=== PATIENT | male | born 1960 | race African-American/Black ===

== ENCOUNTER 2019-05-06 15:46 | Inpatient (IN) | payer BC ==
[~2019-05-06] VITALS: Ht 180.3 cm; Wt 115.7 kg
[2019-05-06 15:50] VITALS: BP_SYST 203
--- NOTE | 2019-05-06 15:50 | NUR ---
Patient triaged and placed in waiting room. VSS and patient appears in no acute distress at this time. Accompanied by FRIEND, awaiting available bed, and MD notified of need for MSE.
--- NOTE | 2019-05-06 16:07 | NUR ---
PT TOLD RADIOTELEGRAPHIST THAT HE IS NOW HAVING CHEST PAINS
--- NOTE | 2019-05-06 16:09 | NUR ---
EKG DONE AND GIVEN TO DR PUGH
--- NOTE | 2019-05-06 16:28 | NUR ---
BROUGHT BACK TO BED #1 AND PLACED ON CARDIAC MONITORING.
--- NOTE | 2019-05-06 16:30 | NUR ---
Patient arrived in the ED c/o left-sided abdominal pain with nausea that started 10hrs ago. Bowel sounds present in all 4 quadrants, LBM 05/05/19. Denied any fevers or chills. Denied any vomiting or diarrhea. Patient is alert and oriented x4, respirations even and unlabored, speaking in full sentences, and ambulating with a steady gait. VSS, pain severity 10/10 - Taking Advil at home. Denied any respiratory distress at this time. Informed of the wait time. Instructed to notify ED staff for any changes in condition or worsening of symptoms. Patient verbalized understanding.
[2019-05-06] MEDS ORDERED: NACL 0.9% 1,000 ML IV ONE ×2 (16:48→16:57)
--- NOTE | 2019-05-06 16:56 | NUR ---
ER Dr. Frank at bedside examining patient.
[2019-05-06] MEDS ORDERED: MORPHINE 4 MG/ML INJ. SYRINGE IVP ONE ×2 (17:00→21:45)
[2019-05-06] MEDS ORDERED: ONDANSETRON HCL 4 MG/2 ML VIAL IVP ONE (17:00)
--- NOTE | 2019-05-06 17:01 | NUR ---
Administered Morphine Sulfate and Zofran IVP as ordered by Dr. Frank. Patient tolerated the medications well. Please see eMAR for details.
--- NOTE | 2019-05-06 17:20 | NUR ---
# 22 gauge angiocath placed to left hand. Use of asceptic technique. Opsite placed over site. Blood return noted. Blood for lab drawn from site. Flushed with 10 cc of normal saline. No evidence of infiltration noted. Patient tolerated well.
[2019-05-06] MEDS ORDERED: cloNIDine HCL 0.1 MG TABLET PO ONE (17:30)
--- NOTE | 2019-05-06 17:35 | NUR ---
ophthalmology technician at bedside collecting blood specimen. Patient tolerated the procedure well.
--- NOTE | 2019-05-06 17:35 | NUR ---
Administered Clonidine as ordered by Dr. Frank. Patient tolerated the medications well. Please see eMAR for details.
--- NOTE | 2019-05-06 17:42 | NUR ---
Xray done at bedside as ordered by Dr. Frank. Patient tolerated the procedure well.
[2019-05-06 17:53] LABS: EOSINOPHILS % (AUTO) 0.1 % (0.0-4.0); LYMPHOCYTES # (AUTO) 1.2 K/uL (1.0-5.5)
--- NOTE | 2019-05-06 18:12 | NUR ---
Urine specimen collected. Dropped off at the lab.
[2019-05-06 18:13] LABS: PROTHROMBIN TIME 10.5 SECS (9.5-12.5)
[2019-05-06 18:18] LABS: CALCIUM 9.1 mg/dL (8.4-11.0); CREATININE 1.08 mg/dL (0.55-1.30)
[2019-05-06 18:22] LABS: BASOPHILS % (AUTO) 0.4 % (0.0-2.0); HEMATOCRIT 49.4 % (36-54); HEMOGLOBIN 17.8 g/dL (14.0-18.0); LYMPHOCYTES % (AUTO) 9.8 % (20.5-51.5); MEAN CORPUSCULAR HEMOGLOBIN 34 pg (27-31); MEAN CORPUSCULAR HGB CONC 36 % (32-36); MEAN CORPUSCULAR VOLUME 94 fL (79.0-98.0); MONOCYTES # (AUTO) 0.6 K/uL (0.0-1.0); MONOCYTES % (AUTO) 4.8 % (1.7-9.3); NEUTROPHILS % (AUTO) 84.9 % (40.0-70.0); PLATELET COUNT (AUTO) 237 K/uL (130-430); RED BLOOD CELL COUNT(AUTO) 5.24 MIL/uL (4.2-6.2); WHITE BLOOD COUNT (AUTO) 11.7 K/uL (4.8-10.8)
[2019-05-06 18:25] LABS: ALBUMIN 4.3 g/dL (3.4-4.8); TOTAL BILIRUBIN 0.6 mg/dL (0.0-1.0)
--- NOTE | 2019-05-06 18:53 | NUR ---
Patient to ER bed 02 to gown for evaluation. Side rails up.
--- NOTE | 2019-05-06 18:55 | NUR ---
food service technician at bedside.
[2019-05-06 19:01] LABS: BILIRUBIN,URINE NEGATIVE (NEGATIVE); CLARITY/URINE CLEAR (CLEAR); COLOR,URINE YELLOW (YELLOW); GLUCOSE,URINE NEGATIVE (NEGATIVE); KETONES,URINE TRACE (NEGATIVE); LEUKOCYTE ESTERASE ,URINE NEGATIVE (NEGATIVE); NITRITE, URINE NEGATIVE (NEGATIVE); PROTEIN URINE 2+ (NEGATIVE); UROBILINOGEN,URINE 0.2 (0.2-1.0)
[2019-05-06 19:08] LABS: BLOOD, URINE TRACE (NEGATIVE)
[2019-05-06 19:24] LABS: BACTERIA,URINE RARE /HPF (None Seen); MUCUS,URINE None Seen /LPF (None Seen); RBC,URINE 0-3 /HPF (0-3); WBC,URINE 0-3 /HPF (0-3)
--- NOTE | 2019-05-06 19:30 | NUR ---
Report given and care transferred to REYNALDO Ga.
[2019-05-06 20:37] LABS: CKMB RELATIVE INDEX 0.3 (0.0-2.9); CREATINE KINASE MB 2.1 ng/mL (0-3.6)
--- NOTE | 2019-05-06 21:30 | NUR ---
Pt resting in ED bed. No acute signs of distress at this time.
[2019-05-06 23:19] LABS: CKMB RELATIVE INDEX 0.3 (0.0-2.9); CREATINE KINASE MB 1.8 ng/mL (0-3.6)
--- NOTE | 2019-05-06 23:30 | NUR ---
Pt resting in ED bed. Pt sleeping but easily aroused.
--- NOTE | 2019-05-07 00:30 | NUR ---
Patient will be admitted to care of . Admitted to Med/Surg unit. Will go to room 129B. Belongings list completed. Complete and up to date summary report printed. SBAR report to be given at bedside with opportunity for questions.
[2019-05-07] MEDS ORDERED: cloNIDine HCL 0.1 MG TABLET PO PRN (01:00)
--- NOTE | 2019-05-07 01:40 | NUR ---
Transfer to [facility]. IV present no sign or symptom of infiltration.
--- NOTE | 2019-05-07 02:06 | NUR ---
ADMISSION: The patient, ESCOBAR MICHAELS, 58 y/o, M admitted by ANNA KOVACS MD, was given written information regarding hospital policies, unit procedures and contact persons. Valuables were checked and .
[2019-05-07] MEDS: HYDROmorphone 1 MG INJ. 1 MG/ML AMPUL IVP PRN ×3 (02:23→21:03)
--- NOTE | 2019-05-07 02:23 | NUR ---
PAIN/DILAUDID PT REPORTING SEVERE ABDOMINAL PAIN. DILAUDID 1 MG IVP ADMINISTERED ORDERED PRN. MEDICATION ACTION AND POTENTIAL SIDE EFFECTS DISCUSSED WITH PT, PT VERBALIZED UNDERSTANDING. SAFETY PRECAUTIONS ARE IN PLACE. CALL LIGHT IS WITH PT. WILL MONITOR.
[2019-05-07] MEDS ORDERED: KCL 20 mEq in D5/0.45NS 1000mL 1,000 ML IV ONE (03:19)
[2019-05-07] MEDS: KCL 20 mEq in D5/0.45NS 1000mL 1,000 ML IV SCH ×2 (03:25→13:41)
--- NOTE | 2019-05-07 03:25 | NUR ---
IVF STARTED IVF STARTED AND REGULATED TO ORDERED RATE BY REYNALDO ARMSTRONG.
--- NOTE | 2019-05-07 05:01 | NUR ---
RESTING PT RESTING IN BED, NO S/S OF ACUTE DISTRESS, BREATHING IS UNLABORED TO ROOM AIR, SAFETY AND FALL PRECAUTIONS ARE IN PLACE. WILL CONTINUE TO MONITOR.
--- NOTE | 2019-05-07 06:04 | NUR ---
CONSENT FOR JOA SIGNED
[2019-05-07 06:27] LABS: BASOPHILS % (AUTO) 0.2 % (0.0-2.0); EOSINOPHILS # (AUTO) 0.1 K/uL (0.0-0.4); EOSINOPHILS % (AUTO) 0.8 % (0.0-4.0); MEAN CORPUSCULAR HEMOGLOBIN 34 pg (27-31); MONOCYTES # (AUTO) 1.3 K/uL (0.0-1.0); NEUTROPHILS % (AUTO) 68.6 % (40.0-70.0)
--- NOTE | 2019-05-07 06:36 | NUR ---
CLOSING NOTE PT RESTING IN BED, DENIES PAIN AT THIS TIME, BREATHING IS EVEN AND UNLABORED TO ROOM AIR, NO S/S OF ACUTE DISTRESS. PT IS NPO FOR HIDA SCAN TODAY. IVF INFUSING AT ORDERED RATE. SAFETY PRECAUTIONS ARE IN PLACE. CALL LIGHT IS WITH PT. WILL ENDORSE CARE TO DAY SHIFT RN.
[2019-05-07 06:42] LABS: CALCIUM 7.8 mg/dL (8.4-11.0); CREATININE 1.12 mg/dL (0.55-1.30)
[2019-05-07 06:54] LABS: ALBUMIN 3.4 g/dL (3.4-4.8); TOTAL BILIRUBIN 0.7 mg/dL (0.0-1.0)
[2019-05-07 07:02] LABS: POTASSIUM 2.9 mmol/L (3.5-5.1)
[2019-05-07 07:23] LABS: HEMATOCRIT 45.1 % (36-54); HEMOGLOBIN 15.8 g/dL (14.0-18.0); MEAN CORPUSCULAR VOLUME 96 fL (79.0-98.0); RED BLOOD CELL COUNT(AUTO) 4.69 MIL/uL (4.2-6.2); WHITE BLOOD COUNT (AUTO) 11.3 K/uL (4.8-10.8)
[2019-05-07 07:24] LABS: MEAN CORPUSCULAR HGB CONC 35 % (32-36); PLATELET COUNT (AUTO) 233 K/uL (130-430)
[2019-05-07 07:26] LABS: LYMPHOCYTES # (AUTO) 2.1 K/uL (1.0-5.5); LYMPHOCYTES % (AUTO) 18.7 % (20.5-51.5); MONOCYTES % (AUTO) 11.7 % (1.7-9.3); NEUTROPHILS # (AUTO) 7.8 K/uL (1.8-7.7)
[2019-05-07 07:34] LABS: CKMB RELATIVE INDEX 0.3 (0.0-2.9); CREATINE KINASE MB 1.6 ng/mL (0-3.6)
--- NOTE | 2019-05-07 07:40 | NUR ---
CRITICAL POTASSIUM OF 2.9. DR. FINA BELTRAN. ENDORSED TO REYNALDO GALEANO. Addendum: 05/07/19 at 0948 by Mildred Franco RN [id number]: Dr. Fina beltran regarding abnormal labs: K+ 2.9
[2019-05-07 08:35] VITALS: BP_SYST 156
--- NOTE | 2019-05-07 09:10 | NUR ---
ATTENDING MD DR Dallas REYES WAS CALLED DIRECTLY RE: ABNORMAL LABS.
--- NOTE | 2019-05-07 09:13 | NUR ---
ERROR WRONG PT.
--- NOTE | 2019-05-07 09:13 | NUR ---
ATTENDING MD DR KOVACS WAS PAGED DIRECTLY FOR: K LEVEL OF 2.9.
[2019-05-07] MEDS ORDERED: POTASSIUM CHLORIDE 40 MEQ in NS 250 ML IV ONE (09:45)
[2019-05-07] MEDS ORDERED: POTASSIUM CHLORIDE 20 MEQ TAB.PRT.SR PO ONE (09:45)
--- NOTE | 2019-05-07 09:45 | NUR ---
Routine Patient asleep with no distress noted.
[2019-05-07 12:20] VITALS: BP_SYST 156
--- NOTE | 2019-05-07 13:45 | NUR ---
Routine Patient sitting on side of bed with Dr. Arroyo at bedside. Started new IVF bag. Patient stable at this time.
[2019-05-07] MEDS ORDERED: PROPOFOL 200MG/ 20ML VIAL (DIPRIVAN) IV ONE (13:50)
[2019-05-07] MEDS ORDERED: LR 1,000 ML IV.SOLN IV ONE (13:50)
[2019-05-07] MEDS ORDERED: SEVOFLURANE 15 MIN GAS INH ONE (13:50)
[2019-05-07] MEDS ORDERED: BUPIVACAINE /PF 0.25% 30 ML VIAL INJ ONE (13:50)
[2019-05-07] MEDS ORDERED: NS IRRIG SOLN 1000 ML IR ONE (13:50)
[2019-05-07] MEDS ORDERED: fentaNYL CITRATE 250 MCG/5 ML AMP IV ONE (13:50)
[2019-05-07] MEDS ORDERED: CEFAZOLIN 2 GM IVPB PREMIX 50 ML IV ONE (13:50)
[2019-05-07] MEDS ORDERED: LABETALOL 100 MG/ 20ML VIAL IVP ONE (13:50)
[2019-05-07] MEDS ORDERED: MIDAZOLAM HCL 5 MG/5 ML VIAL IVP ONE (13:50)
[2019-05-07] MEDS ORDERED: ROCURONIUM BROMIDE 10 MG/ML (ZEMURON) IV ONE (13:50)
[2019-05-07] MEDS ORDERED: amLODIPine BESYLATE 10 MG TABLET PO ONE (15:00)
[2019-05-07 16:40] VITALS: BP_SYST 185
[2019-05-07 20:00] VITALS: BP_SYST 173
--- NOTE | 2019-05-07 20:56 | NUR ---
PATIENT IS REQUESTING FOR SLEEPING MEDICATION AND DR KOVACS PAGED FOR ORDERS,.
[2019-05-07] MEDS: metroNIDAZOLE 500 mg/NS 100 ML IV SCH (21:08)
--- NOTE | 2019-05-07 21:21 | NUR ---
DR KOVACS WITH ORDERS AND CARRIED OUT
[2019-05-07] MEDS: TEMAZEPAM 15 MG CAPSULE PO PRN (22:25)
--- NOTE | 2019-05-07 22:53 | NUR ---
PATIENT INSTRUCTED TO BE NPO P MIDNIGHT FOR THE PROCEDURE IN AM
[2019-05-07 22:59] VITALS: BP_SYST 159
--- NOTE | 2019-05-08 00:57 | NUR ---
ROUNDING PATIENT IS SLEEPING IN BED AND STABLE. NO S/S OF RESPIRATORY DISTRESS NOTED. CALL LIGHT IN REACH. BED IS LOCKED, ALARMED, AND AT THE LOWEST POSITION. WILL CONTINUE TO MONITOR. Addendum: 05/09/19 at 0321 by Dario Joseph RN WRONG DATE
--- NOTE | 2019-05-08 01:38 | NUR ---
NPO AND MAINTAINED
[2019-05-08] MEDS: KCL 20 mEq in D5/0.45NS 1000mL 1,000 ML IV SCH ×3 (01:45→13:07)
[2019-05-08 04:00] VITALS: BP_SYST 148
--- NOTE | 2019-05-08 05:47 | NUR ---
NPO AND MAINTAINED FOR THE SCHEDULED SURGERY TODAY.WITH THE SAME IVF ON
[2019-05-08] MEDS: metroNIDAZOLE 500 mg/NS 100 ML IV SCH ×3 (06:02→21:40)
--- NOTE | 2019-05-08 06:25 | NUR ---
PAGED PAGED HEATHER CHAVEZ AT [phone] SPOKE WITH HAYLIE.
--- NOTE | 2019-05-08 06:26 | NUR ---
DR Dario BHAKTA THE SURGEON PAGED TO VERIFY AND CLARIFY THE TIME HE WOULD LIKE TO DO THE SURGERY THE OPERATING ROOM IS NOT [place] OF THE SCHEDULE. MESSAGE LEFT WITH THE EXCHANGE, AWAITING RESPONSE. PATIENT ISKPET NPO FOR THE PROCEDURE PER DR KOVACS
--- NOTE | 2019-05-08 06:33 | NUR ---
DR BHAKTA CALLED BACK AND INFORMED THAT THERE WAS A CONSENT SIGNED BUT NO ORDERS MADE. WILL NEED TO TALK TO THE NURSING MANAGER FEDERAL ABOUT THE SCHEDULE THE CREW NEEDS TO BE CALLED PREPARATOR FOR THE PROCEDURE.
--- NOTE | 2019-05-08 07:18 | NUR ---
DR BHAKTA TALKED TO THE NURSING INTERIOR DESIGN PROGRAM CHAIR FOR THE SCHEDULE OF THE SURGERY. MRSA SPECIMEN COLLECTED AND SENT TO LAB. NPO AND MAINTAINED
--- NOTE | 2019-05-08 07:30 | NUR ---
opening note patient resting in bed at this time, A/ox4, no complaints of pain. No SOB. IV patent, intact, and infusing as ordered. No adverse side effects noted. No infiltration noted. Patient is NPO at this time, awaiting surgery. On safety and aspiration precautions, HOB kept elevated, bed alarm on, 3 side rails up, call light within reach. patient in stable condition. Will continue to monitor.
[2019-05-08 08:00] VITALS: BP_SYST 160
[2019-05-08 08:14] LABS: CALCIUM 7.9 mg/dL (8.4-11.0); CREATININE 1.18 mg/dL (0.55-1.30); POTASSIUM 3.8 mmol/L (3.5-5.1)
[2019-05-08] MEDS: amLODIPine BESYLATE 10 MG TABLET PO SCH (08:36)
[2019-05-08] MEDS: HYDROmorphone 1 MG INJ. 1 MG/ML AMPUL IVP PRN ×4 (08:42→23:21)
--- NOTE | 2019-05-08 09:00 | NUR ---
medications All morning medications given as ordered. No nausea, no vomiting noted.
[2019-05-08 09:25] LABS: BASOPHILS % (AUTO) 0.4 % (0.0-2.0); EOSINOPHILS # (AUTO) 0.3 K/uL (0.0-0.4); EOSINOPHILS % (AUTO) 2.6 % (0.0-4.0); HEMATOCRIT 44.7 % (36-54); HEMOGLOBIN 15.8 g/dL (14.0-18.0); LYMPHOCYTES # (AUTO) 1.5 K/uL (1.0-5.5); LYMPHOCYTES % (AUTO) 14.3 % (20.5-51.5); MEAN CORPUSCULAR HEMOGLOBIN 34 pg (27-31); MEAN CORPUSCULAR HGB CONC 35 % (32-36); MEAN CORPUSCULAR VOLUME 97 fL (79.0-98.0); MONOCYTES # (AUTO) 0.9 K/uL (0.0-1.0); MONOCYTES % (AUTO) 8.9 % (1.7-9.3); NEUTROPHILS # (AUTO) 7.5 K/uL (1.8-7.7); NEUTROPHILS % (AUTO) 73.8 % (40.0-70.0); PLATELET COUNT (AUTO) 233 K/uL (130-430); RED BLOOD CELL COUNT(AUTO) 4.62 MIL/uL (4.2-6.2); RED CELL DISTRIBUTION WIDTH 13.3 % (9.0-15.0); WHITE BLOOD COUNT (AUTO) 10.2 K/uL (4.8-10.8)
[2019-05-08 09:28] LABS: INR 1.1 (0.80-1.20)
--- NOTE | 2019-05-08 11:30 | NUR ---
rounds patient resting in bed at this time, offered to assist patient to the restroom, patient denied need. Patient is NPO at this time, no other needs at this time.
[2019-05-08 12:10] VITALS: BP_SYST 158
--- NOTE | 2019-05-08 13:30 | NUR ---
CHG bath CHG bath given, linens changed, patient ready for surgery. No other needs at this time.
--- NOTE | 2019-05-08 14:00 | NUR ---
Patient left for surgery patient left for surgery via bed in stable condition. No other needs at this time.
[2019-05-08] MEDS ORDERED: IOHEXOL 50 ML IV ONE (14:05)
[2019-05-08] MEDS ORDERED: ONDANSETRON HCL 4 MG/2 ML VIAL IVP PRN ×2 (14:15→14:30)
[2019-05-08] MEDS ORDERED: MORPHINE 4 MG/ML INJ. SYRINGE IVP PRN (14:15)
[2019-05-08 14:25] VITALS: BP_SYST 158
[2019-05-08] MEDS ORDERED: fentaNYL CITRATE/PF 100 MCG/2 ML AMP IVP PRN ×2 (14:30)
[2019-05-08] MEDS ORDERED: KETOROLAC TROMETHAMINE 30 MG VIAL IVP PRN (14:30)
[2019-05-08] MEDS ORDERED: hydrALAZINE HCL 20 MG/ML VIAL ONE (16:44)
[2019-05-08] MEDS ORDERED: hydrALAZINE HCL 20 MG/ML VIAL IVP ONE (16:45)
--- NOTE | 2019-05-08 17:30 | NUR ---
S/P lap abhijit patient returned from OR, S/P lap abhijit. DANIEL drain in place, draining red drainage, 10cc at this time. [address] No other needs at this time.
--- NOTE | 2019-05-08 18:14 | NUR ---
Closing note patient resting in bed at this time, no complaints of pain. No SOB. IV patent, intact, and infusing as ordered. No adverse side effects noted. No infiltration noted. On safety and aspiration precautions, HOB kept elevated, bed alarm on, 3 side rails up, call light within reach. patient in stable condition. All needs met.
[2019-05-08 19:50] VITALS: BP_SYST 123
--- NOTE | 2019-05-08 19:50 | NUR ---
INITIAL NOTES PATIENT IS LAYING IN BED AND STABLE. NO S/S OF RESPIRATORY DISTRESS NOTED. PATIENT SUCCESSFULLY DEMONSTRATES USAGE OF CALL LIGHT AT THIS TIME. BED IS LOCKED, ALARMED, AND AT THE LOWEST POSITION. FALL, SAFETY, ASPIRATION, AND RESPIRATORY PRECAUTIONS WILL BE IN PLACE THROUGHOUT THE SHIFT. Addendum: 05/08/19 at 2111 by Dario Joseph RN PLAN OF CARE WAS DISCUSSED AT THIS TIME/
--- NOTE | 2019-05-08 20:57 | NUR ---
INCENTIVE SPIROMETER TEACHING PATIENT IS EDUCATED ON INCENTIVE SPIROMETER AT THIS TIME. PATIENT REFUSES TO DEMONSTRATE AT THIS TIME. WILL CONTINUE TO EDUCATE AND MONITOR THROUGHOUT THE SHIFT. Addendum: 05/08/19 at 2111 by Dario Joseph RN FAMILY MEMBER IS BY BESIDE AT THIS TIME. PATIENT IS BY BEDSIDE AT THIS TIME. FAMILY MEMBER WAS APART OF EDUCATION.
--- NOTE | 2019-05-08 22:57 | NUR ---
ROUNDING PATIENT IS LAYING IN BED AND STABLE. NO S/S OF RESPIRATORY DISTRESS NOTED. CALL LIGHT IN REACH. BED IS LOCKED, ALARMED, AND AT THE LOWEST POSITION. WILL CONTINUE TO MONITOR.
[2019-05-09 00:10] VITALS: BP_SYST 153
--- NOTE | 2019-05-09 00:57 | NUR ---
ROUNDING PATIENT IS SLEEPING IN BED AND STABLE. NO S/S OF RESPIRATORY DISTRESS NOTED. CALL LIGHT IN REACH. BED IS LOCKED, ALARMED, AND AT THE LOWEST POSITION. WILL CONTINUE TO MONITOR. Addendum: 05/09/19 at 0328 by Dario Joseph RN FAMILY MEMBER IS NO LONGER BY BEDSIDE AT THIS TIME
--- NOTE | 2019-05-09 02:57 | NUR ---
ROUNDING PATIENT IS SLEEPING IN BED AND STABLE. NO S/S OF RESPIRATORY DISTRESS NOTED. CALL LIGHT IN REACH. BED IS LOCKED, ALARMED, AND AT THE LOWEST POSITION. WILL CONTINUE TO MONITOR.
[2019-05-09] MEDS: KCL 20 mEq in D5/0.45NS 1000mL 1,000 ML IV SCH ×3 (03:49→16:06)
[2019-05-09] MEDS: HYDROmorphone 1 MG INJ. 1 MG/ML AMPUL IVP PRN ×5 (03:51→21:35)
--- NOTE | 2019-05-09 04:34 | NUR ---
DRESSING CHANGE DRESSING CHANGE FOR SURGICAL SITE COMPLETED AT THIS TIME PER MD ORDER, PATIENT TOLERATED WELL. DRESSING IS CLEAN, DRY, INTACT, AND SECURED.
[2019-05-09] MEDS: metroNIDAZOLE 500 mg/NS 100 ML IV SCH ×3 (05:38→22:21)
--- NOTE | 2019-05-09 06:13 | NUR ---
CLOSING NOTES PATIENT IS LAYING IN BED AND STABLE. NO S/S OF RESPIRATORY DISTRESS NOTED. CALL LIGHT IN REACH. BED IS LOCKED, ALARMED, AND AT THE LOWEST POSITION. FALL, SAFETY, ASPIRATION, AND RESPIRATORY PRECAUTIONS HAS BEEN PLACED THROUGHOUT THE SHIFT. WILL CONTINUE TO MONITOR UNTIL REPORT IS GIVEN TO AM NURSE BY BEDSIDE.
--- NOTE | 2019-05-09 07:30 | NUR ---
opening note patient resting in bed at this time, A/ox4, no complaints of pain. No SOB. IV patent, intact, and infusing as ordered. No adverse side effects noted. No infiltration noted. Oleg drain in place, draining red output. On safety and aspiration precautions, HOB kept elevated, bed alarm on, 3 side rails up, call light within reach. patient in stable condition. Will continue to monitor.
[2019-05-09 07:44] LABS: BASOPHILS % (AUTO) 0.2 % (0.0-2.0); HEMATOCRIT 43.2 % (36-54); HEMOGLOBIN 15.3 g/dL (14.0-18.0); LYMPHOCYTES # (AUTO) 1.2 K/uL (1.0-5.5); LYMPHOCYTES % (AUTO) 8.7 % (20.5-51.5); MEAN CORPUSCULAR HEMOGLOBIN 34 pg (27-31); MEAN CORPUSCULAR HGB CONC 36 % (32-36); MEAN CORPUSCULAR VOLUME 96 fL (79.0-98.0); MONOCYTES # (AUTO) 1.3 K/uL (0.0-1.0); MONOCYTES % (AUTO) 9.9 % (1.7-9.3); NEUTROPHILS # (AUTO) 10.8 K/uL (1.8-7.7); NEUTROPHILS % (AUTO) 81.2 % (40.0-70.0); PLATELET COUNT (AUTO) 252 K/uL (130-430); RED CELL DISTRIBUTION WIDTH 13.1 % (9.0-15.0); WHITE BLOOD COUNT (AUTO) 13.4 K/uL (4.8-10.8)
[2019-05-09 07:52] LABS: CALCIUM 7.9 mg/dL (8.4-11.0); CREATININE 1.18 mg/dL (0.55-1.30); POTASSIUM 3.4 mmol/L (3.5-5.1)
[2019-05-09 08:05] VITALS: BP_SYST 155
[2019-05-09] MEDS: amLODIPine BESYLATE 10 MG TABLET PO SCH (08:14)
--- NOTE | 2019-05-09 09:36 | NUR ---
dressing change surgical incision site noted to be bleeding, dressing changed. MD aware.
--- NOTE | 2019-05-09 11:27 | NUR ---
ambulating patient ambulated in the hallway using a front wheeled walked. patient noted with steady gait.
[2019-05-09 12:00] VITALS: BP_SYST 133
--- NOTE | 2019-05-09 13:43 | NUR ---
rounds patient complained of pain, medication given as ordered, effective.
[2019-05-09] MEDS: ACETAMINOPHEN/CODEINE 300 MG-30 MG TABLET PO PRN (16:03)
--- NOTE | 2019-05-09 16:13 | NUR ---
rounds patient complained of abdominal pain. medications given as ordered. no other needs at this time.
[2019-05-09 16:24] VITALS: BP_SYST 151
[2019-05-09] MEDS ORDERED: POTASSIUM CHLORIDE 20 MEQ TAB.PRT.SR PO ONE (16:45)
--- NOTE | 2019-05-09 18:06 | NUR ---
Closing note patient resting in bed at this time, A/ox4, no complaints of pain. No SOB. IV patent, intact, and infusing as ordered. No adverse side effects noted. No infiltration noted. Oleg drain in place, draining red output. On safety and aspiration precautions, HOB kept elevated, bed alarm on, 3 side rails up, call light within reach. patient in stable condition. All needs met.
[2019-05-09 20:00] VITALS: BP_SYST 151
--- NOTE | 2019-05-09 20:00 | NUR ---
receive pt in bed v/s and assessment done same stable rt aniyah in place ,lt hand with iv fluids infusing well ,aniyah drain in place. medicated for pain
[2019-05-09] MEDS: TEMAZEPAM 15 MG CAPSULE PO PRN (22:18)
[2019-05-10] VITALS: BP_SYST 145
--- NOTE | 2019-05-10 | NUR ---
pt repositioned medicated for pain,iv fluids infusing well
[2019-05-10] MEDS: HYDROmorphone 1 MG INJ. 1 MG/ML AMPUL IVP PRN ×4 (01:45→18:46)
--- NOTE | 2019-05-10 04:00 | NUR ---
pt resting in bed in no distress at this time
[2019-05-10 04:01] VITALS: BP_SYST 148
[2019-05-10] MEDS: metroNIDAZOLE 500 mg/NS 100 ML IV SCH ×3 (05:15→21:52)
--- NOTE | 2019-05-10 08:00 | NUR ---
RN INITIAL NOTES RECEIVED PATIENT IN BED NOT IN ANY DISTRESS WITH TRACT TO O2 MASK WITH 5L/MIN , PATIENT IS VERBAL AND ABLE TO VERBALIZED NEEDS, PATIENT WITH PICC LINE TO RT UPPER ARM X 2 LUMEN , RESP EVEN AND UNLABORED , PATIENT SATING 96%
--- NOTE | 2019-05-10 08:00 | NUR ---
RN INITIAL NOTES PATIENT IN BED NOT IN ANY DISTRESS SLEEPY JUST HAD HIS DILAUDID SHOT, FOR POST OP PAIN , RESP EVEN AND UNLABORED , DANIEL DRAINED 50 CC FROM NIGTH SHIFT ,
[2019-05-10] MEDS: amLODIPine BESYLATE 10 MG TABLET PO SCH (09:34)
--- NOTE | 2019-05-10 10:00 | NUR ---
DR BHAKTA SURGEON CAME AND DISCUSSED PATIENT CONDITION , PER DR BHAKTA ITS OK TO KEEP DANIEL DRAIN WHEN DISCHARGE, WILL NEED TO FOLLOW UP WITH SURGEON FOLLOW UP, TRAINED PATIENT HOW TO EMPTY DANIEL DRAIN AND KEEP ON NEGATIVE PRESSURE
--- NOTE | 2019-05-10 10:00 | NUR ---
ROUNDS PATIENT NOT ON ANY DISTRESS, PATIENT SAID RAOULMAGDALENE TOUCH ME FOR NOW I WANT TO SLEEP , STOMA TO LEFT ABDOMEN NO BLEEDING Addendum: 05/10/19 at 1944 by Carol Dwyer RN ERROR WRONG PATIENT
[2019-05-10 11:08] VITALS: BP_SYST 162
--- NOTE | 2019-05-10 12:00 | NUR ---
ROUNDS PATIENT SLEEPING A THIS TIME NO DISTRESS
[2019-05-10 15:05] VITALS: BP_SYST 154
[2019-05-10] MEDS: KCL 20 mEq in D5/0.45NS 1000mL 1,000 ML IV SCH ×2 (15:34→20:00)
--- NOTE | 2019-05-10 16:00 | NUR ---
DR KOVACS PATIENT SEEN BY MD ORDERS NOTED CONT IVF AND MEDS ,
--- NOTE | 2019-05-10 18:42 | NUR ---
P.T. NOTES P.T. JOHANNA COMPLETED; PATIENT MAY AMBULATE INSIDE ROOM AD SILVIA. Addendum: 05/10/19 at 1843 by Mandy Fabian PT Amended: Links added.
--- NOTE | 2019-05-10 19:37 | NUR ---
ENDORSEMENT WILL ENDORSE TO NEXT SHIFT CONT CARE , PATIENT AMBULATES AND CONT ON PAIN MEDS , SEEN BY DR KOVACS AND DISCUSSED PATIENT CONDITION , DRESSING ENDORSED TO NEXT SHIFT TO CHANGE
[2019-05-10 20:00] VITALS: BP_SYST 161
--- NOTE | 2019-05-10 20:00 | NUR ---
ASSUMED CARE. RECEIVED ALERT,ORIENTED. AFEBRILE, NOT IN ACUTE DISTRESS. DENIES ANY PAIN OR DISCOMFORT AT THIS TIME. WITH IV FLUID D5 1/2 NS + KCL 20 MEQ INFUSING AT 100 ML/HR VIA RIGHT AC #22 IV LINE. ABDOMINAL INCISIONS WITH NO SIGNS OB LEEDING OR INFECTION. DANIEL DRAINING SEROSANGUINOUS FLUID. PT. NOTED TO BE PASSING GAS. LE=971/88. OTHERWISE ASYMPTOMATIC AND STABLE. GIRLFRIEND AT BEDSIDE. WILL CONTINUE TO MONITOR. NEEDS ATTENDED.
--- NOTE | 2019-05-10 21:52 | NUR ---
COMPLAINED OF PAIN (8/). MORPHINE 4 MG IVP AND DUE IV ANTIBIOTIC GIVEN.
--- NOTE | 2019-05-10 22:30 | NUR ---
PT.SLEEPING, NO PAIN OR DISCOMFORT NOTED AT THIS TIME.
[2019-05-11] VITALS: BP_SYST 149
[2019-05-11] MEDS: HYDROmorphone 1 MG INJ. 1 MG/ML AMPUL IVP PRN ×2 (00:15→15:38)
--- NOTE | 2019-05-11 00:15 | NUR ---
AWAKE, NOT IN ACUTE DISTRESS. BP BETTER. COMPLAINED OF SEVERE PAIN TO THE SURGICAL SITE. DILAUDID 1 MG IVP GIVEN. SIDE RAILS UP, CALL LIGHT WITHIN REACH. KEPT WARM AND COMFORTABLE. VS REMAIN STABLE.
--- NOTE | 2019-05-11 04:00 | NUR ---
AWAKE, NO PAIN OR DISCOMFORT NOTED AT THIS TIME. WILL CONTINUE TO MONITOR.
[2019-05-11] MEDS: KCL 20 mEq in D5/0.45NS 1000mL 1,000 ML IV SCH ×2 (04:59→15:42)
[2019-05-11] MEDS: metroNIDAZOLE 500 mg/NS 100 ML IV SCH ×3 (06:04→22:38)
[2019-05-11] MEDS: ACETAMINOPHEN/CODEINE 300 MG-30 MG TABLET PO PRN ×2 (06:12→11:18)
--- NOTE | 2019-05-11 06:12 | NUR ---
COMPLAINED OF WORSENING PAIN. TYLENOL WITH CODEINE 1 TABLET PO GIVEN PER PT'S REQUEST.
--- NOTE | 2019-05-11 07:13 | NUR ---
ENDORSED CARE TO GERARDO JACOBS.
--- NOTE | 2019-05-11 08:00 | NUR ---
RN INITIAL NOTES RECEIVED PATIENT IN BED NO DISTRESS , RISE AND FALL OF THE CHEST NOTED NO FACIAL GRIMACE NOTED , PATIENT HAD JUST HIS PO PAIN MEDS AND SNORING LOUD AT THIS TIME
[2019-05-11] MEDS: amLODIPine BESYLATE 10 MG TABLET PO SCH (08:53)
[2019-05-11 09:00] VITALS: BP_SYST 162
--- NOTE | 2019-05-11 10:00 | NUR ---
DR BHAKTA SURGEON CAME DISCUSSED PATIENT DANILE DRAIN AND INFORMED ABOUT 90 CC OUTPUT LAST MD TAYO SAID TO KEEP IT AND EDUCATE PATIENT HOW TO EMPTY AND TO LOG DAILY OUTPUT OF THE DANIEL DRAIN , AND WILL NEED TO SCHEDULE A FOLLOW UP WITH SURGEON NEXT WEEK , PATIENT MADE AWARE AND EDUCATION DONE ON DANIEL DRAIN CARE AND LOGGING IN AND OUT RECORDING, PATIENT VERBALIZED UNDERSTANDING.
--- NOTE | 2019-05-11 11:20 | NUR ---
ROUNDS WOUND DRESSING AND PATIENT GIVEN TYLENOL # 3
[2019-05-11 12:40] VITALS: BP_SYST 157
--- NOTE | 2019-05-11 14:00 | NUR ---
ROUNDS PATIENT SLEEPING NO DISTRESS
[2019-05-11 14:13] VITALS: BP_SYST 157
[2019-05-11 16:48] VITALS: BP_SYST 168
--- NOTE | 2019-05-11 19:09 | NUR ---
ENDORSEMENT WILL ENDORS E TO NEXT SHIFT CONT CARE . CONT ON PAIN MEDS Addendum: 05/11/19 at 1940 by Carol Dwyer RN DR BETHANIE MA HERE INFORMED PATIENT HAD EPISODES OF HI BP WHEN HE IS ON PAIN, SAID HE WILL CHECK AND ORDER BP MEDS , DISCUSSED ALSO DANIEL DRAIN OUTPUT AND CONDITION
[2019-05-11 20:00] VITALS: BP_SYST 150
--- NOTE | 2019-05-11 20:13 | NUR ---
DR KOVACS IN AND WITH ORDERS AND CARRIED OUT.
[2019-05-11] MEDS: HYDROcodone/ACETAMIN 10-325 MG TAB PO PRN (20:43)
[2019-05-11] MEDS: LOSARTAN POTASSIUM 50 MG TABLET (COZAAR) PO SCH (20:43)
[2019-05-11] MEDS: TEMAZEPAM 15 MG CAPSULE PO PRN (22:44)
[2019-05-12 00:49] VITALS: BP_SYST 162
[2019-05-12 02:02] VITALS: BP_SYST 127
[2019-05-12] MEDS: KCL 20 mEq in D5/0.45NS 1000mL 1,000 ML IV SCH ×2 (03:09→11:01)
[2019-05-12] MEDS: HYDROcodone/ACETAMIN 10-325 MG TAB PO PRN ×4 (03:11→20:18)
[2019-05-12] MEDS: metroNIDAZOLE 500 mg/NS 100 ML IV SCH ×2 (05:49→13:51)
[2019-05-12 06:36] LABS: BASOPHILS % (AUTO) 0.3 % (0.0-2.0); EOSINOPHILS # (AUTO) 0.3 K/uL (0.0-0.4); EOSINOPHILS % (AUTO) 2.3 % (0.0-4.0); HEMATOCRIT 37.5 % (36-54); HEMOGLOBIN 13.2 g/dL (14.0-18.0); LYMPHOCYTES # (AUTO) 1.3 K/uL (1.0-5.5); LYMPHOCYTES % (AUTO) 10.4 % (20.5-51.5); MEAN CORPUSCULAR HEMOGLOBIN 34 pg (27-31); MEAN CORPUSCULAR HGB CONC 35 % (32-36); MEAN CORPUSCULAR VOLUME 96 fL (79.0-98.0); MONOCYTES # (AUTO) 1.2 K/uL (0.0-1.0); MONOCYTES % (AUTO) 9.3 % (1.7-9.3); NEUTROPHILS # (AUTO) 9.7 K/uL (1.8-7.7); NEUTROPHILS % (AUTO) 77.7 % (40.0-70.0); PLATELET COUNT (AUTO) 247 K/uL (130-430); WHITE BLOOD COUNT (AUTO) 12.5 K/uL (4.8-10.8)
[2019-05-12 06:45] LABS: CALCIUM 7.5 mg/dL (8.4-11.0); CREATININE 1.04 mg/dL (0.55-1.30); POTASSIUM 3.4 mmol/L (3.5-5.1)
--- NOTE | 2019-05-12 07:30 | NUR ---
INITIAL NOTE PT AWAKE, INSIDE RESTROOM. CALL LIGHT WITHIN REACH, BED IN LOW AND LOCKED POSITION WITH BED ALARM ON.
[2019-05-12 08:00] VITALS: BP_SYST 148
[2019-05-12] MEDS: amLODIPine BESYLATE 10 MG TABLET PO SCH (08:18)
[2019-05-12] MEDS: LOSARTAN POTASSIUM 50 MG TABLET (COZAAR) PO SCH (08:20)
--- NOTE | 2019-05-12 09:34 | NUR ---
PAIN MEDICATION PT COMPLAINING OF 6/10 PAIN IN ABDOMEN. EDUCATED PT ON USES AND SIDE EFFECTS OF NORCO. PT VERBALIZED UNDERSTANDING. PRN NORCO INDICATED FOR MODERATE PAIN, NORCO ADMINISTERED. WILL CONTINUE TO MONITOR.
--- NOTE | 2019-05-12 12:12 | NUR ---
RN ROUNDS PT AMBULATING HALLWAYS. PAIN CONTROLLED AT THIS TIME. WILL CONTINUE TO MONITOR.
[2019-05-12 13:18] VITALS: BP_SYST 151
--- NOTE | 2019-05-12 14:12 | NUR ---
RN ROUNDS PT RESTING IN BED, PAIN CONTROLLED AT THIS TIME. IVF IN FUSING WELL. SCHEDULED ANTIBIOTICS ADMINISTERED.
--- NOTE | 2019-05-12 14:59 | NUR ---
Dietitian Recommendations * Recommend continuing low-fat diet * Encourage increase PO intakes for optimal nutrition * RD to provide low-fat MNT LP, RD Please refer to Nutrition Assessment for details. Addendum: 05/12/19 at [address] Amended: Links added.
--- NOTE | 2019-05-12 15:30 | NUR ---
PAIN MEDICATION PT COMPLAINING OF ABDOMINAL PAIN 10/05. EDUCATED PT ON USES AND SIDE EFFECTS OF NORCO. PT VERBALIZED UNDERSTANDING. PRN NORCO ADMINISTERED. WILL CONTINUE TO MONITOR.
[2019-05-12 16:46] VITALS: BP_SYST 162
--- NOTE | 2019-05-12 17:30 | NUR ---
RN ROUNDS PT AMBULATING PETTY. PT COMPLAINING OF IV LEAKING. DISCONNECTED PT FROM IVF FOR NOW. PT COMPLAINING OF PAIN FROM IV SITE. ELEVATED ARM, WILL REASSESS FOR PATENCY.
--- NOTE | 2019-05-12 18:45 | NUR ---
DR. BETHANIE MA AT BEDSIDE EXAMINING PT. MD TO DISCHARGE PT WITH PRESCRIPTIONS.
--- NOTE | 2019-05-12 19:30 | NUR ---
OPENING NOTES RECEIVED PATIENT IN BED SITTING AAO X4. BREATHING UNLABORED ON ROOM AIR. PATIENT FOR D/C HOME TONIGHT PER DR. KOVACS.
[2019-05-12 19:36] VITALS: BP_SYST 160
--- NOTE | 2019-05-12 19:41 | NUR ---
CLOSING NOTE PT AWAKE, AWARE OF DISCHARGE. IV SALINE LOCKED. ALL NEEDS MET THROUGHOUT SHIFT. CALL LIGHT WITHIN REACH, BED IN LOW AND LOCKED POSITION WITH BED ALARM ON. DISCHARGE ENDORSED TO LARGE ANIMAL HUSBANDRY TECHNICIANJUANA.
--- NOTE | 2019-05-12 20:18 | NUR ---
PAIN MGT PATIENT MEDICATED WITH NORCO EARLIER THAN SCHEDULED TIME PER DR BETHANIE CASTILLO TO GIVE BEFORE DISCHARGING PATIENT HOME. PATIENT REFUSED TYLENOL #3 WHEN OFFERED. VITAL SIGNS STABLE.
--- NOTE | 2019-05-12 20:24 | NUR ---
DISCHARGED PATIENT DISCHARGED HOME ORDERED. WHEELED PATIENT TO LOBBY ACCOMPANIED BY FAMILY MEMBER SIMEON WHO WILL BE DRIVING PATIENT HOME. DISCHARGED IN STABLE CONDITION. ABDOMINAL DRESSINGS DRY NO BLEEDING NOTED. PATIENT INSTRUCTED HOW TO EMPTY DANIEL DRAIN. PATIENT PROVIDED WITH DR. BHAKTA NUMBER AND OFFICE ADDRESS TO FOLLOW UP THIS Friday05/14/19.
--- NOTE | 2019-05-12 21:12 | NUR ---
D/C INSTRUCTIONS DISCHARGE INSTRUCTIONS PROVIDED TO PATIENT. NORCO PRESCRIPTION HANDED OUT TO PATIENT.
== END 2019-05-12 20:24 | disposition home or self-care (01) | DRG 419 ==
LOC: SED 15:46 → SMU 05-07 00:46
PROVIDERS: ADMIT Family Medicine; ATTEND Family Medicine
PROC: 0FT44ZZ Resection of Gallbladder, Percutaneous Endoscopic Approach (ICD-10-PCS; 2019-05-08)
PROC: BF101ZZ Fluoroscopy of Bile Ducts using Low Osmolar Contrast (ICD-10-PCS; 2019-05-08)
PROC: 0FN44ZZ Release Gallbladder, Percutaneous Endoscopic Approach (ICD-10-PCS; principal; 2019-05-08 14:00)
DX: K80.12 Calculus of gallbladder with acute and chronic cholecystitis without obstruction (principal); I10 Essential (primary) hypertension; E66.9 Obesity, unspecified; Z68.35 Body mass index [BMI] 35.0-35.9, adult; Z79.899 Other long term (current) drug therapy
CPT/HCPCS: 36415; 71045; 74300; 76700-TC; 80048; 80053; 81000-TC; 82150-TC; 82550-TC; 82553-TC; 83605; 83690-TC; 83735-TC; 83880; 84484; 85025; 85610-TC; 85730-TC; 87040-TC; 87070; 87070-TC; 87075-TC; 87081; 88304; 93005; 96361; 96374; 96375; 99285; C1727; J0360; J0690; J1170; J1956; J2250; J2270; J2405; J2704; J3010; J3480; J3490; J7030; J7050; J7120; Q9967

== ENCOUNTER 2019-05-28 10:36 | Inpatient (IN) | payer BC ==
[~2019-05-28] VITALS: Ht 180.3 cm; Wt 108.9 kg
--- NOTE | 2019-05-28 10:45 | NUR ---
Patient to ER bed 06 to gown for evaluation. Side rails up.
[2019-05-28 10:46] VITALS: BP_SYST 166
--- NOTE | 2019-05-28 11:06 | NUR ---
PATIENT PRESENTS TO THE ER WITH TWO DAY HX OF RIGHT SIDED CHEST PAIN WITH MOVEMENT; NO TRAUMA, NO OTHER REMARKABLE S/S; PATIENT PLACED IN ROOM #6 AT 1045 AND ERMD EVALUATION AT 1100; STAT EKG AND CASTING ASSOCIATE/SAO2
[2019-05-28] MEDS ORDERED: LOSA25TA18 PO (11:10)
[2019-05-28] MEDS ORDERED: AMLO5TAB92 PO (11:10)
[2019-05-28 11:18] LABS: BASOPHILS % (AUTO) 0.7 % (0.0-2.0); EOSINOPHILS # (AUTO) 0.4 K/uL (0.0-0.4); HEMATOCRIT 42.1 % (36-54); HEMOGLOBIN 14.6 g/dL (14.0-18.0); LYMPHOCYTES # (AUTO) 1.9 K/uL (1.0-5.5); LYMPHOCYTES % (AUTO) 30.4 % (20.5-51.5); MEAN CORPUSCULAR HEMOGLOBIN 33 pg (27-31); MEAN CORPUSCULAR HGB CONC 35 % (32-36); MEAN CORPUSCULAR VOLUME 96 fL (79.0-98.0); MONOCYTES # (AUTO) 0.5 K/uL (0.0-1.0); MONOCYTES % (AUTO) 8.3 % (1.7-9.3); NEUTROPHILS # (AUTO) 3.5 K/uL (1.8-7.7); NEUTROPHILS % (AUTO) 54.6 % (40.0-70.0); PLATELET COUNT (AUTO) 350 K/uL (130-430); RED CELL DISTRIBUTION WIDTH 13.4 % (9.0-15.0); WHITE BLOOD COUNT (AUTO) 6.4 K/uL (4.8-10.8)
[2019-05-28 11:30] LABS: CALCIUM 8.7 mg/dL (8.4-11.0); CREATININE 1.18 mg/dL (0.55-1.30); POTASSIUM 3.3 mmol/L (3.5-5.1)
[2019-05-28 11:31] LABS: INR 1.1 (0.80-1.20); PROTHROMBIN TIME 10.6 SECS (9.5-12.5)
[2019-05-28 11:35] LABS: ALBUMIN 3.2 g/dL (3.4-4.8); TOTAL BILIRUBIN 0.4 mg/dL (0.0-1.0)
--- NOTE | 2019-05-28 12:26 | NUR ---
PREPARATION FOR CT SCAN; CONSENT SIGNED AND IV PLACED #20 RAC WITHOUT INCIDENT
[2019-05-28] MEDS ORDERED: IOHEXOL 350 mgI/mL, 150 ML INFUS..BTL IV ONE (13:20)
--- NOTE | 2019-05-28 14:02 | NUR ---
REASSESSMENT; PATIENT STATES PAIN FREE WITHOUT MOTION; FEELS PAIN IF MOVING RIGHT UPPER EXTREMITIE/CHESTWALL; DISPOSTION PENDING
[2019-05-28] MEDS ORDERED: PIPERACILLIN/TAZO 3.375 GM in NS 50 ML IV ONE (15:00)
--- NOTE | 2019-05-28 15:17 | NUR ---
PREPARATIONS TO ADMIT TO MS; PATIENT REMAINS UNCHANGED; PATENT IV IN RAC @#20; REPORT TO NS NURSE AND PATIENT TRANSPORTED BCLS
[2019-05-28] MEDS ORDERED: PIPERACILLIN/TAZOBACTAM 3.375 GM/VIAL (ZOSYN) IV ONE (15:42)
[2019-05-28] MEDS ORDERED: D5/0.45 NS 1,000 ML IV ONE (16:00)
[2019-05-28 16:25] VITALS: BP_SYST 167
[2019-05-28] MEDS ORDERED: ACETAMINOPHEN 325 MG TABLET PO PRN (16:30)
[2019-05-28] MEDS ORDERED: HYDROcodone/ACETAMIN 5-325 MG TAB (NORCO/ VICODIN) PO PRN (16:30)
[2019-05-28] MEDS ORDERED: LORazepam 2 MG/ML VIAL IVP PRN (16:30)
[2019-05-28] MEDS ORDERED: ONDANSETRON HCL 4 MG/2 ML VIAL IVP PRN (16:30)
[2019-05-28] MEDS ORDERED: HYDROcodone/ACETAMIN 10-325 MG TAB PO PRN (16:30)
--- NOTE | 2019-05-28 16:42 | NUR ---
CONSULTATION PAGED/CALLED Reason for Consultation: [] ABDOMINAL ABSCESS Person Who was Notified: [] DESIREE Consulting Physician: [] DR HUGO Barrel Brander Specialty: [] ID Ordering Physician: [] DR Dario BOOGIE
[2019-05-28] MEDS: AMPICILLIN SODIUM/SULBACTAM NA 3 GM in NS 100 ML IV SCH ×2 (17:47→23:12)
--- NOTE | 2019-05-28 18:00 | NUR ---
Note Pt came to the floor at 1600 from ED. pt was oriented to nursing routines and procedures. Pt was given call light and educated on how to use it. Pt's questions/concerns were answered at this time. Left hand IV intact and patent infusing IVF's well. Pt kept NPO all shift. Dr Escobar came to see pt at 1700. Dr Arroyo to see pt this evening for possible surgery. Pt ambulates to restroom with steady gait. Pt's girlfriend at bedside all shift. Pt stable and was checked on all shift q1' and PRN. Call light within reach.
--- NOTE | 2019-05-28 19:15 | NUR ---
OPENING NOTES Pt and endorsement received from day shift nurse. Pt is AAOx4, lying in bed. Pt on IVF with D5,0.45NS at 100ml/hr and infusing well on left hand G22. No complains of pain at this time. No signs of acute distress or SOB noted. Encouraged to use call light when needed. Safety precautions in place with 2 side rails up, wheels locked, and bed in lowest level. Call light with pt. Will continue to monitor.
[2019-05-28 20:58] VITALS: BP_SYST 152
[2019-05-28] MEDS: NORMAL SALINE 5 ML DISP.SYRIN IVF SCH ×2 (21:00)
--- NOTE | 2019-05-28 21:07 | NUR ---
SURG CONSULT Consult for Dr. Dario Arroyo was called, RE: abdominal abscess s/w [place]
--- NOTE | 2019-05-28 21:18 | NUR ---
SPOKE TO DR. ARROYO Spoke to Dr. Arroyo regarding a surgical consult for this pt. Dr. Arroyo is not aware of the consult, he asked about the pt's status and pt's labs and answered all his questions. He ordered ultrasound of the abdomen in the morning. Told him if pt can eat now since pt is NPO since he came in the floor and pt said he is hungry, said yes and will put pt on NPO after. Read back order and will carry out.
[2019-05-29 00:30] VITALS: BP_SYST 156
--- NOTE | 2019-05-29 01:08 | NUR ---
PAIN MED Pt complained of abdominal pain with a scale of 5/10. Munday 5-325mg PO 1 tab given as ordered. No signs of acute distress or SOB noted. Will continue to monitor.
--- NOTE | 2019-05-29 03:32 | NUR ---
ROUNDS Pt is resting in bed with both eyes closed, with visible chest rise and fall with non-labored breathing noted. Pt is easily arousable. No signs of acute distress or SOB noted. No needs at this time. Safety precautions in place and call light with pt. Will continue to monitor.
[2019-05-29] MEDS: AMPICILLIN SODIUM/SULBACTAM NA 3 GM in NS 100 ML IV SCH ×3 (05:12→17:20)
[2019-05-29] MEDS: NORMAL SALINE 5 ML DISP.SYRIN IVF SCH ×6 (05:12→22:32)
--- NOTE | 2019-05-29 06:16 | NUR ---
CLOSING NOTES Pt is resting in bed with both eyes closed, with visible chest rise and fall with non-labored breathing noted. No complains of pain at this time. No signs of acute distress or SOB noted. All needs attended throughout the shift. Safety precautions maintained with 2 side rails up, wheels locked, and bed in lowest level. Call light with pt. Will endorse to day shift nurse.
[2019-05-29 07:39] LABS: BASOPHILS % (AUTO) 0.4 % (0.0-2.0); EOSINOPHILS # (AUTO) 0.5 K/uL (0.0-0.4); EOSINOPHILS % (AUTO) 7.5 % (0.0-4.0); HEMATOCRIT 41.5 % (36-54); HEMOGLOBIN 14.3 g/dL (14.0-18.0); LYMPHOCYTES # (AUTO) 2.2 K/uL (1.0-5.5); LYMPHOCYTES % (AUTO) 33.3 % (20.5-51.5); MEAN CORPUSCULAR HEMOGLOBIN 33 pg (27-31); MEAN CORPUSCULAR HGB CONC 35 % (32-36); MEAN CORPUSCULAR VOLUME 96 fL (79.0-98.0); MONOCYTES # (AUTO) 0.7 K/uL (0.0-1.0); MONOCYTES % (AUTO) 10.3 % (1.7-9.3); NEUTROPHILS # (AUTO) 3.2 K/uL (1.8-7.7); NEUTROPHILS % (AUTO) 48.5 % (40.0-70.0); PLATELET COUNT (AUTO) 327 K/uL (130-430); RED BLOOD CELL COUNT(AUTO) 4.33 MIL/uL (4.2-6.2); RED CELL DISTRIBUTION WIDTH 13.5 % (9.0-15.0); WHITE BLOOD COUNT (AUTO) 6.6 K/uL (4.8-10.8)
[2019-05-29 07:59] LABS: CALCIUM 8.3 mg/dL (8.4-11.0); CREATININE 1.13 mg/dL (0.55-1.30); POTASSIUM 3.5 mmol/L (3.5-5.1)
[2019-05-29 08:00] VITALS: BP_SYST 151
--- NOTE | 2019-05-29 08:00 | NUR ---
Note Pt resting in bed with IV in left hand intact and patent at this time. No SOB/resp distress or severe abdominal pain/discomfort noted at this time. Pt NPO for US of abdomen, to be done this am. No needs noted at this time. Call light within reach.
[2019-05-29 11:26] VITALS: BP_SYST 145
[2019-05-29] MEDS: amLODIPine BESYLATE 5 MG TABLET PO SCH (11:30)
[2019-05-29] MEDS: LOSARTAN POTASSIUM 25 MG TABLET PO SCH (11:30)
--- NOTE | 2019-05-29 12:00 | NUR ---
Note US of abdomen completed, waiting for results at this time. Waiting for Dr Arroyo to notify pt if MD will do surgery or not today. Pt states he is very hungry. Dr Escobar on the floor doing rounds. Pt denies any needs at this time. Call light within reach.
[2019-05-29] MEDS: metroNIDAZOLE 500 mg/NS 100 ML IV SCH ×2 (13:35→22:31)
[2019-05-29 15:21] VITALS: BP_SYST 151
--- NOTE | 2019-05-29 18:45 | NUR ---
Note Dr Arroyo came to see pt at 1300, ordered diet and spoke to pt on results of US of abdomen. No surgery to be done. Pt has been ambulating in room to restroom all shift with steady gait and independently. No needs noted at this time. Pt was checked on q1' and PRN all shift for needs and care. Pt stable. Denies any upper chest pain/abdominal pain all shift. Call light within reach.
[2019-05-29 20:00] VITALS: BP_SYST 152
--- NOTE | 2019-05-29 20:30 | NUR ---
Opening notes Pt AAOx4, watching TV. VSS, afebrile. No s/s distress noted. Pt denies any pain at this time. IV saline lock L hand 22G clear and patent. Call light within reach. Bed low, locked, siderails up x2. To monitor.
--- NOTE | 2019-05-29 21:00 | NUR ---
Rounds Pt had shower per pt request. L. hand IV maintained dry and intact.
[2019-05-29 23:31] VITALS: BP_SYST 146
[2019-05-30] MEDS: AMPICILLIN SODIUM/SULBACTAM NA 3 GM in NS 100 ML IV SCH ×2 (00:30→05:26)
--- NOTE | 2019-05-30 00:30 | NUR ---
Rounds Pt asleep, easily arousable. IV antibiotics administered at this time. Call light remains within reach. Safety maintained. To monitor.
--- NOTE | 2019-05-30 04:05 | NUR ---
Rounds Pt asleep, respirations even and unlabored. Call light within reach. To monitor.
[2019-05-30] MEDS: NORMAL SALINE 5 ML DISP.SYRIN IVF SCH ×2 (05:25→05:26)
--- NOTE | 2019-05-30 06:00 | NUR ---
Closing notes Pt awake, resting in bed. No s/s distress. No c/o pain. IV antibiotics infusing at ordered rate L hand 22G no s/s infiltration. Bed low, locked, siderails up x2. Call light within reach. To endorse to AM nurse.
[2019-05-30] MEDS: metroNIDAZOLE 500 mg/NS 100 ML IV SCH (06:05)
[2019-05-30 08:00] VITALS: BP_SYST 142
--- NOTE | 2019-05-30 08:00 | NUR ---
IV in left hand,#22, SL, site intact and patent at this time. No pain at this time. Instructed on POC. Call light in place, bed locked at the lowest position. Will continue to monitor.
[2019-05-30] MEDS: LOSARTAN POTASSIUM 25 MG TABLET PO SCH (08:08)
[2019-05-30] MEDS: amLODIPine BESYLATE 5 MG TABLET PO SCH (08:09)
[2019-05-30 08:13] LABS: BASOPHILS % (AUTO) 0.3 % (0.0-2.0); EOSINOPHILS # (AUTO) 0.5 K/uL (0.0-0.4); EOSINOPHILS % (AUTO) 7.4 % (0.0-4.0); HEMATOCRIT 41.8 % (36-54); HEMOGLOBIN 14.5 g/dL (14.0-18.0); LYMPHOCYTES # (AUTO) 1.7 K/uL (1.0-5.5); LYMPHOCYTES % (AUTO) 27.8 % (20.5-51.5); MEAN CORPUSCULAR HEMOGLOBIN 33 pg (27-31); MEAN CORPUSCULAR HGB CONC 35 % (32-36); MEAN CORPUSCULAR VOLUME 96 fL (79.0-98.0); MONOCYTES # (AUTO) 0.6 K/uL (0.0-1.0); NEUTROPHILS # (AUTO) 3.4 K/uL (1.8-7.7); NEUTROPHILS % (AUTO) 55.5 % (40.0-70.0); PLATELET COUNT (AUTO) 317 K/uL (130-430); RED BLOOD CELL COUNT(AUTO) 4.34 MIL/uL (4.2-6.2); RED CELL DISTRIBUTION WIDTH 13.6 % (9.0-15.0); WHITE BLOOD COUNT (AUTO) 6.2 K/uL (4.8-10.8)
[2019-05-30 08:16] LABS: C-REACTIVE PROTEIN QUANT 0.4 mg/dL (0-0.5); CALCIUM 8.5 mg/dL (8.4-11.0); CREATININE 1.3 mg/dL (0.55-1.30); POTASSIUM 3.2 mmol/L (3.5-5.1)
--- NOTE | 2019-05-30 09:48 | NUR ---
Patient is resting, no signs of distress noted.
[2019-05-30 09:50] LABS: ERYTHROCYTE SEDIMENTATION RATE 12 MM/HR (0-15)
[2019-05-30] MEDS ORDERED: METR500T PO (10:40)
[2019-05-30] MEDS ORDERED: AMOX-426 PO (10:40)
[2019-05-30] MEDS ORDERED: HYDR-4272 PO (10:40)
[2019-05-30] MEDS ORDERED: POTASSIUM CHLORIDE 20 MEQ TAB.PRT.SR PO ONE (10:45)
[2019-05-30 11:13] VITALS: BP_SYST 147
[2019-05-30 11:44] VITALS: BP_SYST 143
--- NOTE | 2019-05-30 12:08 | NUR ---
D/C Patient Patient given medication reconciliation form and D/C instructions. Exit Care provided. Patient verbalized understanding. MD discussed with patient the results and treatment provided. Ambulatory with steady gait for discharge to home. Patient in stable condition, ID band removed. IV catheter removed, intact and dressing applied, no active bleeding. Rx of NORCO, FLAGYL, AND AUGMENTIN given. Patient educated on pain management. All belongings sent with patient.
--- NOTE | 2019-06-03 16:22 | NUR ---
Discharge Follow Up Phone Call Phoned patient, , and left a voicemail message with reminder to make follow up appointment and offer of assistance along with Social Service contact information.
== END 2019-05-30 12:08 | disposition home or self-care (01) | DRG 863 ==
LOC: SED 10:36 → SMU 15:17
PROVIDERS: ADMIT Preventive Medicine Preventive Medicine/Occupational Environmental Medicine; ATTEND Preventive Medicine Preventive Medicine/Occupational Environmental Medicine
DX: T81.49XA Infection following a procedure, other surgical site, initial encounter (principal); L02.211 Cutaneous abscess of abdominal wall; R18.8 Other ascites; R73.9 Hyperglycemia, unspecified; E83.51 Hypocalcemia; E87.6 Hypokalemia; E88.09 Other disorders of plasma-protein metabolism, not elsewhere classified; I10 Essential (primary) hypertension; Y83.8 Other surgical procedures as the cause of abnormal reaction of the patient, or of later complication, without mention of misadventure at the time of the procedure; Z90.49 Acquired absence of other specified parts of digestive tract; Z79.899 Other long term (current) drug therapy; Y92.89 Other specified places as the place of occurrence of the external cause
CPT/HCPCS: 36415; 71045; 71275; 76700-TC; 80048; 80053; 83880; 84484; 85025; 85379; 85610-TC; 85651-TC; 85730-TC; 86140; 87040-TC; 93970; 96365; 99285; J0295; J2543; J3490; Q9967